=== PATIENT | female | born 1940 | race Caucasian/White ===

== ENCOUNTER 2018-11-01 08:15 | Day surgery (SDC) | payer OTHER, MEDICARE ==
[2018-11-01 09:04] LABS: MPV 10.3 fL (7.6-11.3)
[2018-11-01 09:08] LABS: Protime INR 0.93
[2018-11-01 09:26] LABS: Platelet Estimate ADEQ
--- NOTE | 2018-11-01 12:38 | RAD REPORT ---
EXAM DESCRIPTION: RAD - Myelography Lumbar - 11/01/2018 12:24 pm CLINICAL HISTORY: MYELO Lumbar puncture for CT lumbar myelogram. Radiculopathy, history compression fracture COMPARISON: Lumbar Spine 3 Views dated 10/31/2018; Spine Lumbar Wo Con dated 11/01/2018 TECHNIQUE: The procedure, risks and alternatives to the procedure were discussed with the patient in detail. After answering all questions, both oral and written consent were obtained. Time-out procedu re was performed. The patient was placed in an oblique prone position on the fluoroscopic table. The skin of the lower back was prepped and draped in the usual sterile fashion. After anesthetizing the skin and deeper sof t tissues with 1% lidocaine, a 22 gauge needle was advanced into the thecal sac at the L3-4 level. 12 cc of Isovue 200 M was injected into the subarachnoid space. At the conclusion of the procedure the needle was withdrawn and a sterile bandage placed over the pun cture site. The patient tolerated the procedure well without immediate complications. Patient was the n transferred for CT lumbar myelography. Total fluoro time: 55 seconds Images obtained: 5 IMPRESSION: Successful fluoroscopic guided lumbar puncture for CT myelogram injection. CT lumbar myelography is separately reported.
--- NOTE | 2018-11-01 13:01 | RAD REPORT ---
EXAM DESCRIPTION: CT - Spine Lumbar Wo Con - 11/01/2018 12:47 pm CLINICAL HISTORY: Radiculopathy.Compression fracture. MYELO COMPARISON: Myelography Lumbar dated 11/01/2018; Lumbar Spine 3 Views dated 10/31/2018; Bone Imaging Whole Body dated 10/31/2018 TECHNIQUE: Axial noncontrast CT imaging of the lumbar spine was performed with coronal and sagittal re-formatted images. High-resolution disc space 1 millimeter sequences were also obtained. All CT scans are performed using dose optimization technique as appropriate and may include automated exposure control or mA/KV adjustment according to patient size. FINDINGS: The lumbar puncture procedure for CT myelography contrast injection is separately reported . A moderate anterior wedge compression fracture is seen affecting the L2 vertebral body. Vertebral bod y height loss is estimated at 40-50%. The posterior cortex of the L2 vertebral body superiorly is sli ghtly buckled, however there is no significant canal compromise present. L1-2: Mild asymmetric posterior disc bulge to the left is seen mild facet and ligamentum flavum hyper trophy. No high-grade canal stenosis or foraminal narrowing. L2-3: Mild concentric posterior disc bulge is present. Small endplate osteophytes also noted. No sign ificant canal or foraminal stenosis. L3-4: Moderate concentric posterior disc bulge is present with mild facet and ligamentum flavum hyper trophy. The central canal is narrowed moderately to 8 mm. The anterior inferior aspects of both exit foramina mildly narrowed. L4-5: Mild posterior disc bulge is present asymmetric to the left with mild facet and ligamentum flav um hypertrophy. Mild central canal narrowing is present. No significant exit foraminal narrowing. L5-S1: Minimal endplate osteophyte posterior disc bulge with mild facet hypertrophy. Annular calcific ation is present. No significant canal or foraminal stenosis. No finding to suggest arachnoiditis. IMPRESSION: Moderate anterior wedge compression fracture affects the L2 vertebral body as described above. There is no evidence of significant canal compromise. Elsewhere, mild spondylosis is noted throughout the lumbar spine, most notable at L3-4. Overall, barnett efrain, no high-grade canal stenosis or foraminal stenosis seen at any level.
[2018-11-01] MEDS ORDERED: TRAMADOL HCL 50 MG TAB ONE (13:07)
== END 2018-11-01 15:22 | disposition home or self-care (01) ==
LOC: DS 08:15
PROVIDERS: ATTEND Specialist
DX: M48.56XA Collapsed vertebra, not elsewhere classified, lumbar region, initial encounter for fracture (principal); M47.816 Spondylosis without myelopathy or radiculopathy, lumbar region; M48.062 Spinal stenosis, lumbar region with neurogenic claudication
CPT/HCPCS: 36415; 62304; 72131; 85049; 85610; 85730